=== PATIENT | female | born 1955 | race Caucasian/White ===

== ENCOUNTER 2017-03-02 10:59 | Emergency (ER) | payer MEDICAID, OTHER ==
[2017-03-02 11:10] VITALS: BMI 25.1
[2017-03-02 11:14] VITALS: RESP 18; TEMP 98.2; O2SAT 98
[2017-03-02] MEDS ORDERED: Apap-Butalbital-Caffeine 325-50-40mg Tab PO STA (11:22)
[2017-03-02] MEDS ORDERED: Apap-Butalbital-Caffeine 325-50-40mg Tab ONE (11:33)
--- NOTE | 2017-03-02 11:35 | C.PDOC ---
History Of Present Illness 62 year old female presents to the ED with complaints of intermittent left sided headache for one month. Patient states an object fell on her head one month ago and was evaluated by PMD. She was instructed to take Tylenol but headache persists. She describes pain as dull aching and non-radiating. Patient was also evaluated for high blood pressure and told to try dietary management. She has decreased salt in her diet but blood pressure was high today. Patient denies dizziness, nausea, vomiting, or vision changes. Time Seen by Provider: 03/02/17 11:14 Chief Complaint (Nursing): Headache History Per: Patient History/Exam Limitations: no limitations Onset/Duration Of Symptoms: Intermittent Episodes (for one month ) Current Symptoms Are (Timing): Still Present Preceeding Symptoms: None Recent travel outside of the [place]: No Past Medical History Reviewed: Historical Data, Nursing Documentation, Vital Signs Vital Signs: Last Vital Signs Temp 98.2 F 03/02/17 11:10 Pulse 66 03/02/17 11:54 Resp 18 03/02/17 11:54 BP 160/81 H 03/02/17 11:54 Pulse Ox 98 03/02/17 11:58 - Medical History PMH: Osteoporosis Surgical History: Family History: States: Unknown Family Hx - Social History Hx Alcohol Use: No Hx Substance Use: No - Immunization History Hx Tetanus Toxoid Vaccination: Yes Hx Influenza Vaccination: Yes Hx Pneumococcal Vaccination: Yes Review Of Systems Constitutional: Negative for: Fever, Chills Cardiovascular: Negative for: Chest Pain Respiratory: Negative for: Shortness of Breath Gastrointestinal: Negative for: Nausea, Vomiting Neurological: Positive for: Headache. Negative for: Weakness, Numbness, Dizziness Physical Exam - Physical Exam Appears: Non-toxic, No Acute Distress Skin: Warm, Dry Head: Atraumatic, Normacephalic, No Swelling, No Abrasion, No Laceration Eye(s): bilateral: Normal Inspection, PERRL, EOMI, Other (no nystagmus) Oral Mucosa: Moist Neck: Supple Chest: Symmetrical, No Deformity Cardiovascular: Rhythm Regular Respiratory: Normal Breath Sounds, No Rales, No Rhonchi, No Wheezing Extremity: Bilateral: Atraumatic, Normal Color And Temperature, Normal ROM Neurological/Psych: Oriented x3, Normal Speech, Normal Cranial Nerves, No Cerebellar Signs, Normal Motor, Normal Sensation Gait: Steady ED Course And Treatment O2 Sat by Pulse Oximetry: 98 (room air) Pulse Ox Interpretation: Normal Progress Note: Patient was given Fioricet with good relief. She remained alert and oriented in no distress. Neuro intact. Patient was instructed to follow up regarding blood pressure and potential jail management. Disposition Counseled Patient/Family Regarding: Diagnosis, Need For Followup - Disposition Referrals: Radha Alcantara MD [Primary Care Provider] - Disposition: HOME/ ROUTINE Disposition Time: 11:51 Condition: STABLE Additional Instructions: Por favor, siga con knight mdico con respecto a la presin arterial [place] medicamentos para el dolor cuando sea necesario Prescriptions: Acetaminophen/Butalbital/Caf [Fioricet] 1 tab PO TID PRN #20 tab PRN Reason: Headache Instructions: Acute Headache (DC) Forms: [employer] (Senegalese) Print Language: [place] - POA Present On Arrival: None - Clinical Impression Clinical Impression: Headache - Scribe Statement The provider has reviewed the documentation as recorded by the Scribe Li Adams All medical record entries made by the Scribe were at my direction and personally dictated by me. I have reviewed the chart and agree that the record accurately reflects my personal performance of the history, physical exam, medical decision making, and the department course for this patient. I have also personally directed, reviewed, and agree with the discharge instructions and disposition.
[2017-03-02 11:55] VITALS: BP 160/81; PULSE 66
== END 2017-03-02 12:00 | disposition home or self-care (01) ==
LOC: C.ER 10:59 → SUPCPDRO 10:59 → C.ER 12:00
DX: R51 Headache (principal)

== ENCOUNTER 2018-03-11 18:37 | Inpatient (IN) | payer MEDICAID ==
[2018-03-11 18:37] VITALS: BMI 25.1
[2018-03-11] MEDS ORDERED: Sodium Chloride 0.9% 1,000 ML IV ONE (19:37)
--- NOTE | 2018-03-11 19:37 | C.PDOC ---
History Of Present Illness pt complaining of rlq abdominal pain, no nausea or vomiting. dull aching discomfort Time Seen by Provider: 03/11/18 19:37 Chief Complaint (Nursing): Abdominal Pain History Per: Patient History/Exam Limitations: no limitations Onset/Duration Of Symptoms: Days Current Symptoms Are (Timing): Still Present Context: Other Severity: Moderate Location Of Pain/Discomfort: RLQ Radiation Of Pain To:: None Quality Of Discomfort: Dull, Aching Associated Symptoms: denies: Fever, Chills, Nausea, Vomiting Exacerbating Factors: None Alleviating Factors: None Last Bowel Movement: Today Recent travel outside of the [place]: No Additional History Per: Patient Abnormal Vaginal Bleeding: No Past Medical History Reviewed: Historical Data, Nursing Documentation, Vital Signs Vital Signs: Last Vital Signs Temp 98.1 F 03/11/18 18:58 Pulse 71 03/11/18 18:58 Resp 16 03/11/18 18:58 BP 149/86 03/11/18 18:58 Pulse Ox 100 03/11/18 22:15 - Medical History PMH: Osteoporosis Surgical History: Family History: States: No Known Family Hx - Social History Hx Alcohol Use: No Hx Substance Use: No - Immunization History Hx Tetanus Toxoid Vaccination: No Hx Influenza Vaccination: No Hx Pneumococcal Vaccination: No Review Of Systems Constitutional: Negative for: Fever, Chills ENT: Negative for: Throat Pain Cardiovascular: Negative for: Chest Pain Respiratory: Negative for: Shortness of Breath Gastrointestinal: Positive for: Abdominal Pain. Negative for: Nausea, Vomiting Genitourinary: Negative for: Dysuria Musculoskeletal: Negative for: Back Pain Skin: Negative for: Rash Neurological: Negative for: Weakness Psych: Positive for: Anxiety Physical Exam - Physical Exam Appears: Non-toxic, No Acute Distress Skin: Warm, Dry Head: Normacephalic Eye(s): bilateral: Normal Inspection Oral Mucosa: Moist Neck: Supple Chest: Symmetrical Cardiovascular: Rhythm Regular Respiratory: No Rales, No Rhonchi, No Wheezing Gastrointestinal/Abdominal: Soft, Tenderness (rllq), No Distention, No Guarding Back: No CVA Tenderness Extremity: Normal ROM Extremity: Bilateral: Atraumatic Neurological/Psych: Oriented x3 Gait: Steady ED Course And Treatment - Laboratory Results Result Diagrams: 03/11/18 20:00 03/11/18 20:00 O2 Sat by Pulse Oximetry: 100 Pulse Ox Interpretation: Normal Disposition Discussed With Dr.: Jorge Nicolas Comment: accepted the pt on his service and took over the care at 11:40 PM Doctor Will See Patient In The: ED Counseled Patient/Family Regarding: Studies Performed, Diagnosis - Disposition Disposition: HOSPITALIZED Disposition Time: 19:37 Condition: FAIR Forms: [employer] (Macedonian) - POA Present On Arrival: None - Clinical Impression Clinical Impression: Abdominal pain Decision To Admit - Pt Status Changed To: Hospital Disposition Of: Inpatient - Admit Certification Admit to Inpatient:: After my assessment, the patient will require hospitalization for at least two midnights. This is because of the severity of symptoms shown, intensity of services needed, and/or the medical risk in this patient being treated as an outpatient. - InPatient: Physician Admission Certification:: After my assessment, the patient will require hospitalization for at least two midnights. This is because of the severity of symptoms shown, intensity of services needed, and/or the medical risk in this patient being treated as an outpatient. - . Bed Request Type: Regular Admitting Physician: Jorge Nicolas Patient Diagnosis: Abdominal pain
[2018-03-11 20:03] LABS: BASO % 0.3 % (0.0-2.0); EOS # 0.2 K/uL (0.0-0.7); EOS % 1.9 % (0.0-4.0); HEMOGLOBIN 11.9 g/dL (11.0-16.0); LYMPH # 2.3 K/uL (1.0-4.3); LYMPH % 22.4 % (20.0-40.0); MEAN CELL VOLUME 87.1 fL (81.0-99.0); MEAN CORPUSCULAR HEMOGLOBIN 29.4 pg (27.0-31.0); MEAN CORPUSCULAR HGB CONC 33.7 g/dL (33.0-37.0); MEAN PLATELET VOLUME 8.2 fL (7.2-11.7); MONO # 0.6 K/uL (0.0-0.8); MONO % 6.1 % (0.0-10.0); NEUT # 7.1 K/uL (1.8-7.0); NEUT % 69.3 % (50.0-75.0); RBC 4.04 Mil/uL (3.80-5.20); RED CELL DISTRIBUTION WIDTH 13.7 % (11.5-14.5); WHITE BLOOD COUNT 10.3 K/uL (4.8-10.8)
[2018-03-11] MEDS ORDERED: Sodium Chloride 0.9% 1,000 ML ONE (20:05)
[2018-03-11 20:10] LABS: PROTHROMBIN TIME 11.3 SECONDS (9.7-12.2); SQUAMOUS EPITHIAL 2 /hpf (0-5); URINE BACTERIA RARE (<OCC); URINE BILIRUBIN NEGATIVE (NEGATIVE); URINE BLOOD 2+ (NEGATIVE); URINE CLARITY Clear (Clear); URINE COLOR Colorless (YELLOW); URINE GLUCOSE (UA) NORMAL (Normal); URINE LEUKOCYTE ESTERASE 1+ Leu/uL (Negative); URINE PROTEIN NEGATIVE (NEGATIVE); URINE UROBILINOGEN NORMAL mg/dL (0.2-1.0)
[2018-03-11 20:19] LABS: ALB/GLOB RATIO 1.3 (1.0-2.1); ALBUMIN 4.4 g/dL (3.5-5.0); ALT/SGPT 28 U/L (9-52); AST/SGOT 20 U/L (14-36); BLOOD UREA NITROGEN 13 mg/dL (7-17); CALCIUM 9.8 mg/dl (8.6-10.4); GFR NON-AFRICAN AMERICAN > 60; LIPASE 128 U/L (23-300)
[2018-03-11] MEDS ORDERED: Iodixanol 320 MG/ML 100 ML BOTTLE IV ONE (22:34)
[2018-03-11] MEDS ORDERED: Piperacillin/Tazobact 3.375 gm 100 ML IVPB STA (23:29)
[2018-03-12] MEDS ORDERED: HYDROmorphone 0.5 mg/0.5 ml ISec IVP PRN (00:12)
[2018-03-12] MEDS: Sodium Chloride 0.9% 1,000 ML IV SCH ×2 (00:17→11:51)
--- NOTE | 2018-03-12 00:20 | CP.PCM.HP ---
History of Present Illness - History of Present Illness History of Present Illness: Surgery 63 F w PMH of Hypertention and came with 1 day history of RLQ abd pain. Pain is sudden and sharp. Denies fever, nausea, vomiting, diarrhea, CP, SOB, dysuria. report anorexia and last time ate or drink was 10 hours ago. Pt is menopausal. CT of abd shows acute appendicitis. Pt is consented for surgery. Translated by nurse. All questions answered. PMH osteoporosis HTN PSH Med for HTN SS menopausal, lives w family, non smoker Present on Admission - Present on Admission Any Indicators Present on Admission: No Review of Systems - Review of Systems Review of Systems: See HPI Past Patient History - Past Social History Smoking Status: Never Smoked - MUSCULOSKELETAL/RHEUMATOLOGICAL Hx Osteoporosis: Yes - PSYCHIATRIC Hx Substance Use: No - SURGICAL HISTORY Hx Section: Yes - ANESTHESIA Hx Anesthesia: Yes Hx Anesthesia Reactions: No Meds Allergies/Adverse Reactions: Allergies Allergy/AdvReac Type Severity Reaction Status Date / Time No Known Allergies Allergy Verified 03/11/18 19:03 Physical Exam - Constitutional Appears: No Acute Distress - Head Exam Head Exam: ATRAUMATIC, NORMAL INSPECTION, NORMOCEPHALIC - Eye Exam Eye Exam: EOMI, Normal appearance, PERRL Pupil Exam: NORMAL ACCOMODATION, PERRL - ENT Exam ENT Exam: Mucous Membranes Moist, Normal Exam - Neck Exam Neck exam: Positive for: Normal Inspection - Respiratory Exam Respiratory Exam: Clear to Auscultation Bilateral, NORMAL BREATHING PATTERN - Cardiovascular Exam Cardiovascular Exam: REGULAR RHYTHM - GI/Abdominal Exam GI & Abdominal Exam: Guarding, Soft, Tenderness. absent: Distended, Firm, Hernia, Rigid Additional comments: RLQ TTP - Extremities Exam Extremities exam: Positive for: full ROM, normal inspection - Back Exam Back exam: NORMAL INSPECTION - Neurological Exam Neurological exam: Alert, CN II-XII Intact, Normal Gait, Oriented x3, Reflexes Normal - Psychiatric Exam Psychiatric exam: Normal Affect, Normal Mood - Skin Skin Exam: Dry, Intact, Normal Color, Warm Results - Vital Signs Recent Vital Signs: Last Vital Signs Temp 98.2 F 03/11/18 23:41 Pulse 76 03/11/18 23:41 Resp 20 03/11/18 23:41 BP 159/87 H 03/11/18 23:41 Pulse Ox 100 03/11/18 23:43 - Labs Result Diagrams: 03/11/18 20:00 03/11/18 20:00 Labs: Laboratory Results - last 24 hr 03/11/18 03/11/18 03/11/18 20:00 20:00 20:00 WBC 10.3 RBC 4.04 Hgb 11.9 Hct 35.2 MCV 87.1 MCH 29.4 MCHC 33.7 RDW 13.7 Plt Count 231 MPV 8.2 Neut % (Auto) 69.3 Lymph % (Auto) 22.4 Christian % (Auto) 6.1 Eos % (Auto) 1.9 Baso % (Auto) 0.3 Neut # (Auto) 7.1 H Lymph # (Auto) 2.3 Christian # (Auto) 0.6 Eos # (Auto) 0.2 Baso # (Auto) 0.0 PT 11.3 INR 1.0 APTT 36 H Sodium Potassium Chloride Carbon Dioxide Anion Gap BUN Creatinine Est GFR ( Amer) Est GFR (Non-Af Amer) Random Glucose Calcium Total Bilirubin AST ALT Alkaline Phosphatase Total Protein Albumin Globulin Albumin/Globulin Ratio Lipase Urine Color Colorless Urine Clarity Clear Urine pH 7.0 Ur Specific [place] 1.003 Urine Protein Negative Urine Glucose (UA) Normal Urine Ketones Negative Urine Blood 2+ H Urine Nitrate Negative Urine Bilirubin Negative Urine Urobilinogen Normal Ur Leukocyte Esterase 1+ H Urine WBC (Auto) 4 Urine RBC (Auto) 17 H Ur Squamous Epith Cells 2 Urine Bacteria Rare 03/11/18 20:00 WBC RBC Hgb Hct MCV MCH MCHC RDW Plt Count MPV Neut % (Auto) Lymph % (Auto) Christian % (Auto) Eos % (Auto) Baso % (Auto) Neut # (Auto) Lymph # (Auto) Christian # (Auto) Eos # (Auto) Baso # (Auto) PT INR APTT Sodium 141 Potassium 4.1 Chloride 102 Carbon Dioxide 29 Anion Gap 14 BUN 13 Creatinine 0.5 L Est GFR ( Amer) > 60 Est GFR (Non-Af Amer) > 60 Random Glucose 107 H Calcium 9.8 Total Bilirubin 0.4 AST 20 ALT 28 Alkaline Phosphatase 95 Total Protein 7.8 Albumin 4.4 Globulin 3.4 Albumin/Globulin Ratio 1.3 Lipase 128 Urine Color Urine Clarity Urine pH Ur Specific [place] Urine Protein Urine Glucose (UA) Urine Ketones Urine Blood Urine Nitrate Urine Bilirubin Urine Urobilinogen Ur Leukocyte Esterase Urine WBC (Auto) Urine RBC (Auto) Ur Squamous Epith Cells Urine Bacteria Assessment & Plan - Assessment and Plan (Free Text) Assessment: acute appendicitis -OR -IVF -ABX -Pain/nausea control -GI/DVT ppx Will DW Dr. Nicolas
[2018-03-12] MEDS: Piperacillin/Tazobact 3.375 GM in Sodium Chloride 100 ML IVPB SCH ×4 (05:58→17:14)
--- NOTE | 2018-03-12 07:38 | CT ---
Date of service: 03/11/2018 PROCEDURE: CT Abdomen and Pelvis without intravenous contrast HISTORY: Abdominal pain COMPARISON: None. TECHNIQUE: Multiple contiguous axial images were performed through the abdomen and pelvis with the use of intravenous contrast. Subsequently, sagittal and coronal reformatted images were obtained. Radiation dose: Total exam DLP = 387 mGy-cm. This CT exam was performed using one or more of the following dose reduction techniques: Automated exposure control, adjustment of the mA and/or kV according to patient size, and/or use of iterative reconstruction technique. FINDINGS: LOWER THORAX: Small airway trapping and microatelectasis. LIVER: Hepatomegaly and fatty infiltration of the liver. GALLBLADDER AND BILE DUCTS: Unremarkable. PANCREAS: Unremarkable. No gross lesion or ductal dilatation. SPLEEN: Unremarkable. ADRENALS: Unremarkable. No mass. KIDNEYS AND URETERS: 6.2 centimeter low-attenuation lesion in the lower pole of the left kidney demonstrating a Hounsfield unit attenuation of 7 suggestive for a cyst. Few punctate scattered sub centimeter hypodensities in the right kidney, too small to adequately characterize. Additional few punctate scattered hypodensities in the left kidney also too small to adequately characterize. VASCULATURE: Unremarkable. No aortic aneurysm. BOWEL: Unremarkable. No obstruction. No gross mural thickening. Diverticulosis. APPENDIX: Fluid distended enhancing appendix measuring up to 9 millimeters. Moderate periappendiceal induration and reactive lymphadenopathy. PERITONEUM: Unremarkable. No free fluid. No free air. LYMPH NODES: Calcified mesenteric lymph nodes. BLADDER: Unremarkable. REPRODUCTIVE: Unremarkable. BONES: Osteopenia. Spondylosis and facet arthrosis. OTHER FINDINGS: Diastases rectus. Atheromatous changes of a normal caliber aorta and branch vessels. Numerous benign phleboliths in the pelvis. IMPRESSION: Fluid distended enhancing appendix measuring up to 9 millimeters with moderate periappendiceal induration and reactive lymphadenopathy concerning for acute appendicitis. Clinical correlation. Additional findings as above. These findings were preliminarily reported at 11:26 p.m. on 03/11/[address] Susie Bravo from [employer].
[2018-03-12 07:53] LABS: BASO % 0.1 % (0.0-2.0); EOS # 0.1 K/uL (0.0-0.7); EOS % 1.1 % (0.0-4.0); HEMOGLOBIN 11.4 g/dL (11.0-16.0); LYMPH # 1.5 K/uL (1.0-4.3); LYMPH % 18.2 % (20.0-40.0); MEAN CORPUSCULAR HEMOGLOBIN 29.9 pg (27.0-31.0); MEAN CORPUSCULAR HGB CONC 34.3 g/dL (33.0-37.0); MEAN PLATELET VOLUME 8.4 fL (7.2-11.7); MONO # 0.5 K/uL (0.0-0.8); MONO % 6.2 % (0.0-10.0); NEUT % 74.4 % (50.0-75.0); RBC 3.83 Mil/uL (3.80-5.20); RED CELL DISTRIBUTION WIDTH 13.7 % (11.5-14.5)
[2018-03-12 08:10] LABS: ALB/GLOB RATIO 1.3 (1.0-2.1); ALT/SGPT 23 U/L (9-52); AST/SGOT 22 U/L (14-36); BLOOD UREA NITROGEN 10 mg/dL (7-17); CALCIUM 9.2 mg/dl (8.6-10.4); GFR NON-AFRICAN AMERICAN > 60
[2018-03-12] MEDS ORDERED: Bupivacaine 0.25%-Epinephrine 1:200,000 (30 ml) Inj INFIL ONE (08:49)
[2018-03-12] MEDS ORDERED: Midazolam 2 MG/2 ML VIAL ONE (09:50)
[2018-03-12] MEDS ORDERED: Rocuronium 10 mg/ml (5 ml) ONE (09:50)
[2018-03-12] MEDS ORDERED: Succinylcholine Chloride 20 mg/ml Syr (5 ml) IV ONE (09:50)
[2018-03-12] MEDS ORDERED: Propofol 10 mg/ml Inj (20 ML) ONE (09:50)
[2018-03-12] MEDS ORDERED: Esmolol 100 mg/10ml Inj IV ONE (10:23)
[2018-03-12] MEDS ORDERED: Neostigmine Methylsulfate 3mg/3ml Syringe IV ONE (10:33)
[2018-03-12] MEDS ORDERED: ePHEDrine 50 mg/ml Inj ONE ×2 (10:37→10:45)
--- NOTE | 2018-03-12 11:03 | PCM.SURG1 ---
Surgeon's Initial Post Op Note - Surgeon's Notes Surgeon: Dr. Jorge Nicolas Plastic Tile Layer: Darlene Jaimes, PGY-2 Type of Anesthesia: General Endo (Dr) Anesthesia Administered By: Dr. Garcia Pre-Operative Diagnosis: Acute appendicitis Operative Findings: See op report Post-Operative Diagnosis: Acute appendicitis Operation Performed: Laparoscopic appendectomy, lysis of adhesions Specimen/Specimens Removed: Appendix Estimated Blood Loss: EBL {In ML}: 10 Blood Products Given: N/A Drains Used: No Drains Post-Op Condition: Good Date of Surgery/Procedure: 03/12/18 Time of Surgery/Procedure: 11:03
[2018-03-12] MEDS ORDERED: oxyCODONE 5 mg Immediate Release Tab PO PRN (11:13)
[2018-03-12] MEDS ORDERED: HYDROmorphone 0.5 mg/0.5 ml ISec ONE (11:16)
[2018-03-12] MEDS: HYDROmorphone 0.5 mg/0.5 ml ISec IVP PRN ×2 (11:17→11:30)
[2018-03-12 12:21] VITALS: RESP 20
[2018-03-12] MEDS ORDERED: Benzocaine/Menthol (Cepacol) Lozenge MT PRN (20:00)
[2018-03-12] MEDS ORDERED: Simethicone 80 mg Chewtab PO PRN (20:00)
[2018-03-12] MEDS ORDERED: Tramadol 25 mg PO PRN (20:00)
[2018-03-12] MEDS: oxyCODONE 5 mg Immediate Release Tab PO PRN (21:40)
[2018-03-13] MEDS: Piperacillin/Tazobact 3.375 GM in Sodium Chloride 100 ML IVPB SCH ×2 (00:50→06:29)
--- NOTE | 2018-03-13 07:52 | CP.PCM.DIS ---
Provider - Provider Date of Admission: 03/11/18 23:29 Attending physician: Jorge Nicolas MD Primary care physician: Dr. Nicolas-General surgery Consults: None Time Spent in preparation of Discharge (in minutes): 35 Diagnosis - Discharge Diagnosis (1) Appendicitis Status: Acute (2) S/P laparoscopic appendectomy Status: Acute Hospital Course - Lab Results Lab Results: Most Recent Lab Values WBC 8.0 K/uL (4.8-10.8) 03/12/18 07:39 RBC 3.83 Mil/uL (3.80-5.20) 03/12/18 07:39 Hgb 11.4 g/dL (11.0-16.0) 03/12/18 07:39 Hct 33.3 % (34.0-47.0) L 03/12/18 07:39 MCV 87.0 fL (81.0-99.0) 03/12/18 07:39 MCH 29.9 pg (27.0-31.0) 03/12/18 07:39 MCHC 34.3 g/dL (33.0-37.0) 03/12/18 07:39 RDW 13.7 % (11.5-14.5) 03/12/18 07:39 Plt Count 226 K/uL (130-400) 03/12/18 07:39 MPV 8.4 fL (7.2-11.7) 03/12/18 07:39 Neut % (Auto) 74.4 % (50.0-75.0) 03/12/18 07:39 Lymph % (Auto) 18.2 % (20.0-40.0) L 03/12/18 07:39 [place] % (Auto) 6.2 % (0.0-10.0) 03/12/18 07:39 Eos % (Auto) 1.1 % (0.0-4.0) 03/12/18 07:39 Baso % (Auto) 0.1 % (0.0-2.0) 03/12/18 07:39 Neut # (Auto) 6.0 K/uL (1.8-7.0) 03/12/18 07:39 Lymph # (Auto) 1.5 K/uL (1.0-4.3) 03/12/18 07:39 [place] # (Auto) 0.5 K/uL (0.0-0.8) 03/12/18 07:39 Eos # (Auto) 0.1 K/uL (0.0-0.7) 03/12/18 07:39 Baso # (Auto) 0.0 K/uL (0.0-0.2) 03/12/18 07:39 PT 11.3 SECONDS (9.7-12.2) 03/11/18 20:00 INR 1.0 03/11/18 20:00 APTT 36 SECONDS (21-34) H 03/11/18 20:00 Sodium 144 mmol/L (132-148) 03/12/18 07:39 Potassium 4.4 mmol/L (3.6-5.2) 03/12/18 07:39 Chloride 106 mmol/L (98-107) 03/12/18 07:39 Carbon Dioxide 28 mmol/L (22-30) 03/12/18 07:39 Anion Gap 15 (10-20) 03/12/18 07:39 BUN 10 mg/dL (7-17) 03/12/18 07:39 Creatinine 0.5 mg/dL (0.7-1.2) L 03/12/18 07:39 Est GFR ( Amer) > 60 03/12/18 07:39 Est GFR (Non-Af Amer) > 60 03/12/18 07:39 POC Glucose (mg/dL) 107 mg/dL (65-110) 03/12/18 08:03 Random Glucose 114 mg/dL (65-105) H 03/12/18 07:39 Calcium 9.2 mg/dl (8.6-10.4) 03/12/18 07:39 Total Bilirubin 0.7 mg/dL (0.2-1.3) 03/12/18 07:39 AST 22 U/L (14-36) 03/12/18 07:39 ALT 23 U/L (9-52) 03/12/18 07:39 Alkaline Phosphatase 88 U/L (38-126) 03/12/18 07:39 Total Protein 7.0 g/dL (6.3-8.3) 03/12/18 07:39 Albumin 4.0 g/dL (3.5-5.0) 03/12/18 07:39 Globulin 3.0 gm/dL (2.2-3.9) 03/12/18 07:39 Albumin/Globulin Ratio 1.3 (1.0-2.1) 03/12/18 07:39 Lipase 128 U/L (23-300) 03/11/18 20:00 Urine Color Colorless (YELLOW) 03/11/18 20:00 Urine Clarity Clear (Clear) 03/11/18 20:00 Urine pH 7.0 (5.0-8.0) 03/11/18 20:00 Ur Specific [place] 1.003 (1.003-1.030) 03/11/18 20:00 Urine Protein Negative mg/dL (NEGATIVE) 03/11/18 20:00 Urine Glucose (UA) Normal mg/dL (Normal) 03/11/18 20:00 Urine Ketones Negative mg/dL (NEGATIVE) 03/11/18 20:00 Urine Blood 2+ (NEGATIVE) H 03/11/18 20:00 Urine Nitrate Negative (NEGATIVE) 03/11/18 20:00 Urine Bilirubin Negative (NEGATIVE) 03/11/18 20:00 Urine Urobilinogen Normal mg/dL (0.2-1.0) 03/11/18 20:00 Ur Leukocyte Esterase 1+ Ina/uL (Negative) H 03/11/18 20:00 Urine WBC (Auto) 4 /hpf (0-5) 03/11/18 20:00 Urine RBC (Auto) 17 /hpf (0-3) H 03/11/18 20:00 Ur Squamous Epith Cells 2 /hpf (0-5) 03/11/18 20:00 Urine Bacteria Rare (<OCC) 03/11/18 20:00 - Hospital Course Hospital Course: 63 F w PMH of Hypertention and came with 1 day history of RLQ abd pain. Pain is sudden and sharp. Denies fever, nausea, vomiting, diarrhea, CP, SOB, dysuria. report anorexia and last time ate or drink was 10 hours ago. Pt is menopausal. CT of abd shows acute appendicitis. Pt taken to OR on hospital day 1 for laparoscopic appendectomy. Pt tolerated procedure well, kept overnight for diet tolerance and pain control. Pt stable and ready for d/c home. All questions answered with daughters at bedside. Diagnoses: Acute appendicitis S/p laparoscopic appendectomy - Date & Time of H&P Date of H&P: 03/12/18 Time of H&P: 00:16 Discharge Exam - Head Exam Head Exam: ATRAUMATIC, NORMAL INSPECTION, NORMOCEPHALIC - Eye Exam Eye Exam: EOMI, Normal appearance - ENT Exam ENT Exam: Mucous Membranes Moist, Normal Exam - Neck Exam Neck exam: Full Rom, Normal Inspection - Respiratory Exam Respiratory Exam: NORMAL BREATHING PATTERN, UNREMARKABLE - Cardiovascular Exam Cardiovascular Exam: REGULAR RHYTHM, +S1, +S2 - GI/Abdominal Exam GI & Abdominal Exam: Soft, Tenderness (LLQ). absent: Distended, Firm, Guarding , Rigid - Extremities Exam Extremities exam: normal inspection - Neurological Exam Neurological exam: Alert, CN II-XII Intact, Oriented x3 - Psychiatric Exam Psychiatric exam: Normal Affect, Normal Mood - Skin Skin Exam: Dry, Intact, Normal Color Additional comments: Glue in place over surgical sites on abdomen, LLQ, supraumbilical and suprapubic area Discharge Plan - Follow Up Plan Condition: STABLE Disposition: HOME/ ROUTINE Instructions: Appendicitis in Adults, Appendectomy, Laparoscopic Surgery (DC) Additional Instructions: Ok to shower you have special glue in place- this will fall on it's own Do not sit in a hot tub or go swimming Ok to resume normal diet No heavy lifting for 4-6 weeks Please follow up with Dr. Nicolas in 1-2 weeks for evaluation Referrals: Jorge Nicolas MD [Staff Provider] -
[2018-03-13 08:31] VITALS: BP 106/66; PULSE 68; TEMP 98.4; O2SAT 97
[2018-03-13] MEDS: oxyCODONE 5 mg Immediate Release Tab PO PRN (08:42)
--- NOTE | 2018-03-14 06:55 | OP ---
PROCEDURE DATE: 03/12/2018 SURGEON: Jorge Nicolas MD ELECTRIC RAZOR ASSEMBLER: Darlene Jaimes, PGY-2 ANESTHESIOLOGIST: Dr Garcia ANESTHESIA: General endotracheal. PREOPERATIVE DIAGNOSIS: Acute appendicitis. POSTOPERATIVE DIAGNOSIS: Acute appendicitis. FINDINGS: Acutely inflamed appendix. SPECIMEN: Appendix. BLOOD LOSS: 10 mL. DRAINS: None. COMPLICATIONS: None. INDICATIONS: Vicky Lassiter is a 63-year-old female with past medical history of hypertension, status post (remote) who presented to the ED with a one-day history of right lower quadrant abdominal pain. A CT abdomen was completed with findings consistent with acute appendicitis. It was determined that the patient would benefit from laparoscopic appendectomy. The patient was consented for the same. DESCRIPTION OF PROCEDURE: The patient was placed on the operating table in the supine position. A time-out was performed using both pre-induction and pre-incision safety check list to verify correct patient, procedure and site. Prior to the start of the procedure, general endotracheal anesthesia was induced. The left arm was tucked. The abdomen was prepped and draped in the usual sterile fashion. The Veress needle was inserted into the epigastric area due to remote history of with midline scar from supraumbilical area to infraumbilical area. Abdomen was insufflated to a pressure of 15 mmHg. A supraumbilical incision was made for a 12-mm Visi- Port trocar. This was inserted with the laparoscope in place through the abdominal wall layers under direct visualization. The abdominal cavity was inspected with findings of adhesions along the intraabdominal midline incision from previous . A left lower quadrant abdominal incision was made for a 5-mm trocar. The trocar was inserted under direct visualization. The midline adhesions were dissected from the peritoneal layer without complication. A 5-mm trocar was introduced into the suprapubic area. All trocars were placed without injury. The appendix was identified. The patient was placed in Trendelenburg. The cecum was manipulated with a grasper and the appendix was freed of lateral peritoneal adhesions. The appendix was then grasped and elevated, identifying the base of the appendix, at which point a window was developed through the mesoappendix. The [place] Flex Endopath stapler was used to transect the appendix. The mesoappendix was then divided using the [place] Endopath stapler. The appendix was placed in an endoscopic retrieval bag and removed via the 12-mm port site. The appendiceal stump was then irrigated and hemostasis was verified. The intraabdominal cavity was inspected in all 4 quadrants. No other pathology or injury was identified. Secondary trocars were removed. No bleeding was noted at trocar sites. Laparoscope was withdrawn and the umbilical trocar was removed. Pneumoperitoneum was evacuated. All trocar sites greater than 5 mm were closed with a 4-0 Vicryl on UR-6 suture. The skin was closed with subcuticular sutures of 4-0 Monocryl. Dermabond was applied. All instrument, counts, sutures, and sponges were declared to be correct at the end of the procedure. The patient tolerated the procedure well and was taken to the postanesthesia care unit in stable condition. Darlene Jaimes DO Jorge Nicolas MD MTDFernando
== END 2018-03-13 10:33 | disposition home or self-care (01) | DRG 883 ==
LOC: C.ER 18:37 → C.9E 23:29 → C.5S 23:39
PROVIDERS: ADMIT Surgery; ATTEND Surgery
PROC: 0DTJ4ZZ Resection of Appendix, Percutaneous Endoscopic Approach (ICD-10-PCS; principal; 2018-03-12 10:00)
DX: K35.80 Unspecified acute appendicitis (principal); I10 Essential (primary) hypertension; M81.0 Age-related osteoporosis without current pathological fracture